=== PATIENT | female | born 1975 | race Caucasian/White ===

== ENCOUNTER → 2017-10-24 | Outpatient (CLI) | payer OTHER ==
--- NOTE | 2017-10-24 12:13 | FL ---
EXAMINATION TYPE: FL UGI air DATE OF EXAM: 10/24/2017 COMPARISON: NONE HISTORY: Pain above diaphragm for one month. History of GERD. TECHNIQUE: A double contrast UGI study is performed. 30 seconds of fluoroscopic time was utilized. 2 preprocedure images along with 20 images during procedure and 3 post procedure images were performed . FINDINGS: [employer] image of the abdomen shows no gross abnormality. Cholecystectomy clips are noted. The esophagus shows satisfactory motility and emptying into the stomach. No evidence of hiatal herni a or stricture noted. The stomach shows satisfactory distensibility, peristalsis, and mucosal folds. No evidence of any ma ss or ulcer disease. Several episodes of gastroesophageal reflux were seen during real-time performan ce of study. The duodenal bulb and sweep show tiny diverticulum along the medial aspect of second portion of duode num otherwise are unremarkable. IMPRESSION: Gastroesophageal reflux and tiny duodenal diverticulum.
== END | disposition home or self-care (01) ==
LOC: RADFLMAIN 08:37
PROVIDERS: ATTEND Family Medicine
DX: K21.9 Gastro-esophageal reflux disease without esophagitis (principal); K57.10 Diverticulosis of small intestine without perforation or abscess without bleeding; Z88.0 Allergy status to penicillin; Z88.6 Allergy status to analgesic agent; Z88.8 Allergy status to other drugs, medicaments and biological substances
CPT/HCPCS: 74246

== ENCOUNTER 2018-07-02 10:42 | Day surgery (SDC) | payer OTHER ==
[2018-06-27 15:14] VITALS: BMI 34.7
[~2018-07-02 10:42] MED LIST: LACTATED RINGERS 1,000 ML IV SCH; LIDOCAINE 1% 20 ML VIAL (10MG/ML) FOR IV START INTRADERMA PRN
[2018-07-02 11:13] VITALS: TEMP 97.2
[2018-07-02] MEDS ORDERED: MIDAZOLAM 2 MG/2 ML VIAL ONE (12:47)
[2018-07-02] MEDS ORDERED: PROPOFOL 10 MG/ML 20 ML VIAL IV ONE (12:47)
[2018-07-02] MEDS ORDERED: fentaNYL (PF) 50 MCG/ML 2 ML AMP ONE (12:47)
[2018-07-02] MEDS ORDERED: LIDOCAINE 1% INJ 10MG/ML (20 ML MDV) ONE (12:47)
--- NOTE | 2018-07-02 13:11 | P.PCN ---
Date of Procedure: 07/02/18 Procedure(s) Performed: Procedure: Esophagogastroduodenoscopy and biopsy. Preoperative diagnosis: Chronic reflux symptoms, not relieved by medical therapy. Postoperative diagnosis: 1. Very small sliding hiatal hernia with no obvious esophagitis or complicated reflux disease. 2. Mild antral gastritis with no ulcers or gastric outlet obstruction. 3. Multiple biopsies obtained from the duodenum, antrum and esophagus. Preparation and sedation: Was provided by anesthesia. Brief clinical history: The patient is a 42-year-old female who is scheduled for this evaluation because of reflux symptoms of few months duration not responding to medical therapy. No dysphagia, odynophagia or bleeding. No unintentional weight loss. This evaluation is to assess for esophagitis or complicated reflux disease or other pathology. Procedure: With the patient on her left lateral decubitus position and after informed consent and adequate sedation, I passed the Olympus-GIF 160 video upper endoscope through the cricopharyngeus down the esophagus. GE junction was around 36 cm from the incisors and there was a very small sliding hiatal hernia but no obvious esophagitis or complicated reflux disease. The endoscope was then passed into the stomach which was insufflated with air and inspected in detail including the retroflex view in the cardia. There was some mottling and erythema in the antrum but no ulcers or erosions. Pyloric channel, duodenal bulb, post bulbar area and descending duodenum appeared within normal limits. Because of her symptoms, I obtained biopsies from the duodenum, antrum and esophagus then the endoscope was withdrawn. The patient tolerated the procedure well. Plan: The patient was reassured. Will await biopsy results. She will follow- up with you as planned and further plans can be made based on her course and biopsy results. We would be happy to see in the future if her symptoms persist.
[2018-07-02 13:24] VITALS: BP 104/72; PULSE 75; RESP 18
== END 2018-07-02 13:48 | disposition home or self-care (01) ==
LOC: ORWHC2ENDO 10:42
DX: K29.50 Unspecified chronic gastritis without bleeding (principal); K21.0 Gastro-esophageal reflux disease with esophagitis; K44.9 Diaphragmatic hernia without obstruction or gangrene; F31.9 Bipolar disorder, unspecified; F17.210 Nicotine dependence, cigarettes, uncomplicated; Z79.899 Other long term (current) drug therapy; Z88.6 Allergy status to analgesic agent; Z88.1 Allergy status to other antibiotic agents; Z88.0 Allergy status to penicillin; Z90.49 Acquired absence of other specified parts of digestive tract; Z90.710 Acquired absence of both cervix and uterus
CPT/HCPCS: 88305; 43239; J2250; J2001; J3010; J2704

== ENCOUNTER → 2022-06-22 | Outpatient (CLI) | payer OTHER ==
--- NOTE | 2022-06-22 12:17 | MR ---
EXAMINATION TYPE: MR knee LT wo con DATE OF EXAM: 06/22/2022 COMPARISON: None HISTORY: Left knee pain, injury 3 weeks ago. TECHNIQUE: Multiplanar, multisequence imaging of the left knee is performed without IV contrast. FINDINGS: MEDIAL MENISCUS: Along the posterior horn the medial meniscus peripherally, coronal image #22, sagitt al image #26 there is some linear increased signal present although no definite extension to the anthony cular surface is noted. LATERAL MENISCUS: Anterior and posterior horns are intact without tear. CRUCIATE LIGAMENTS: The anterior and posterior cruciate ligaments are intact and unremarkable. COLLATERAL LIGAMENTS: The medial collateral ligament and lateral collateral ligament complex are inta ct and unremarkable. EXTENSOR MECHANISM: Visualized quadriceps and patellar tendons are intact. EFFUSION: No significant suprapatellar joint effusion, minimal joint fluid noted. POPLITEAL CYST: No popliteal/snydre cyst. TRICOMPARTMENT SPACES: Maintained CARTILAGE: Intact BONE MARROW SIGNAL: No focal abnormal marrow signal is appreciated. OTHER: There is some inflammatory signal present adjacent to the lateral margin of the posterior and inferior aspect of the patella, some increased signal present within Hoffa's fat pad this level. Pos terior medial soft tissues shows some mild increased T2 signal, possibly some local edema. IMPRESSION: Consider Hoffa fat pad impingement syndrome. Suspect some local edema possibly due to pat ient's trauma Abnormal marginal peripheral signal noted at the posterior horn of the medial meniscus, cleared tear not identified with certainty
== END | disposition home or self-care (01) ==
LOC: RADMRIMAIN 08:39
PROVIDERS: ATTEND Family Medicine
DX: S89.92XA Unspecified injury of left lower leg, initial encounter (principal)

== ENCOUNTER → 2023-10-18 | Outpatient (CLI) | payer OTHER ==
--- NOTE | 2023-10-18 18:14 | US ---
EXAMINATION TYPE: US pelvis complete transvag DATE OF EXAM: 10/18/2023 COMPARISON: NONE CLINICAL INDICATION: Female, 47 years old with history of R10.2 pelvic pain; Hx miscarriages. Patient has both ovaries. LMP 2011 at time of partial hysterectomy. Patient states she still has both ovarie s. . A2. TECHNIQUE: Transvaginal (TV) and Transabdominal (TA) . Transabdominal sonographic images of the pel vis were acquired. Transvaginal sonographic images were medically necessary to better assess the fol lowing anatomy: ovaries Date of LMP: 2011 at time of hysterectomy. EXAM MEASUREMENTS: Uterus: Surgically absent Endometrial Stripe: Surgically absent Right Ovary: Not seen Left Ovary: Not seen 1. Uterus: Surgically absent 2. Endometrium: Surgically absent 3. Right Ovary: Not seen 4. Left Ovary: Not seen 5. Bilateral Adnexa: Appears wnl 6. Posterior cul-de-sac: Appears wnl IMPRESSION: Neither ovary could be visualized due to bowel gas. Patient status post hysterectomy. No pelvic free fluid.
--- NOTE | 2023-10-19 20:20 | MM ---
Reason for Exam: Screening (asymptomatic). Patient History: Menarche at age 14. First Full-Term at age 25. Hysterectomy at age 35. Patient has history of breast feeding. 03/15/2012, Benign Excisional Biopsy on the right side. Risk Values: Sophia 5 year model risk: 1.1%. NCI Lifetime model risk: 10.2%. Prior Study Comparison: No prior studies available for comparison. Tissue Density: There are scattered fibroglandular densities. Findings: Analyzed By CAD. There is bilateral nodularity, one area upper outer quadrant right breast and 2 areas laterally in the left breast. Suspect intramammary lymph nodes given reniform appearance. As no priors available for comparison purposes, further evaluation is recommended. Benign oil cyst calcifications on the right. Otherwise, no discrete abnormality. Overall Assessment: Incomplete: need additional imaging evaluation, BI-RAD 0 Management: Diagnostic Mammogram of both breasts. Diagnostic Breast Ultrasound of both breasts. Additional views to include 3-D ML views on both sides. This should be followed with targeted bilateral breast ultrasounds for the areas of nodularity. [facility] will attempt to contact patient to return for supplemental views and ultrasound if indicated. Electronically signed and approved by: Lucas Jones M.D. Radiologist
== END | disposition home or self-care (01) ==
LOC: RADUSWWP 12:55
PROVIDERS: ATTEND Internal Medicine
DX: Z12.31 Encounter for screening mammogram for malignant neoplasm of breast (principal); R10.2 Pelvic and perineal pain; Z90.710 Acquired absence of both cervix and uterus
CPT/HCPCS: 76830; 76856; 77063; 77067

== ENCOUNTER → 2023-11-08 | Outpatient (CLI) | payer OTHER ==
--- NOTE | 2023-11-08 09:03 | MM ---
Reason for Exam: Additional evaluation requested from abnormal screening. Last screening mammogram was performed less than 1 month ago. Patient History: Menarche at age 14. First Full-Term at age 25. Hysterectomy at age 35. Patient has history of breast feeding. 03/15/2012, Benign Excisional Biopsy on the right side. Paternal aunt (yamil) had breast cancer. Risk Values: Sophia 5 year model risk: 1.1%. NCI Lifetime model risk: 10.2%. Prior Study Comparison: 10/18/2023 Bilateral MG 3D screening mammo w/cad, [facility]. Tissue Density: There are scattered fibroglandular densities. Findings: Analyzed By CAD. Persistent nodular density upper outer right breast approximately 11 cm from the nipple. Ultrasound is recommended. 2 nodular densities left breast 1 upper outer quadrant 13 cm from the nipple and a second lower outer quadrants 6 cm from the nipple. Ultrasound is advised bilaterally. Overall Assessment: Incomplete: need additional imaging evaluation, BI-RAD 0 Management: Diagnostic Breast Ultrasound of both breasts. . Results were given to the patient verbally at the time of exam. Patient should continue monthly self-breast exams. A clinical breast exam by your physician is recommended on an annual basis. This exam should not preclude additional follow-up of suspicious palpable abnormalities. Note on Sophia scores and lifetime risk: 1. A Sophia score greater than 3% is considered moderate risk. If this is the case, consider specialist referral to assess eligibility for a risk reducing agent. 2. If overall lifetime risk for the development of breast cancer is 20% or higher, the patient may qualify for future screening with alternating mammogram and breast MRI. Electronically signed and approved by: Ervin Lazaro M.D. Radiologis
--- NOTE | 2023-11-08 09:14 | USB ---
Reason for Exam: Additional evaluation requested from abnormal screening. Indicated Problems: Other indicated problem of the right side : UOQ. Other indicated problem of the left side : Lateral. Patient History: Menarche at age 14. First Full-Term at age 25. Hysterectomy at age 35. Patient has history of breast feeding. 03/15/2012, Benign Excisional Biopsy on the right side. Paternal aunt (great) had breast cancer. Risk Values: Sophia 5 year model risk: 1.1%. NCI Lifetime model risk: 10.2%. Technique: Method: Targeted. Doppler: Color. LPO and RPO. Prior Study Comparison: 10/18/2023 Bilateral MG 3D screening mammo w/cad, [facility]. Findings: The upper outer quadrant of both breasts, the axilla of both breasts and the retroareolar of both breasts were scanned. Cystic lesion at the right 10:00 position measures 1 cm x 3 mm. No solid right-sided masses are seen. Left breast demonstrates 3:00 cystic lesion measuring 8 x 4 mm. Additional cystic lesion left 1:00 position measures 4 x 1 mm. Overall Assessment: Probably benign, BI-RAD 3 Management: Diagnostic Mammogram of both breasts in 6 months. A clinical breast exam by your physician is recommended on an annual basis and results should be correlated with mammographic findings. This exam should not preclude additional follow-up of suspicious palpable abnormalities. Results were given to the patient verbally at the time of exam. Electronically signed and approved by: Ervin Lazaro M.D. Radiologis
== END | disposition home or self-care (01) ==
LOC: RADMAMWWP 08:14
PROVIDERS: ATTEND Internal Medicine
DX: N60.01 Solitary cyst of right breast (principal); N60.02 Solitary cyst of left breast; R92.323 Mammographic fibroglandular density, bilateral breasts; Z80.3 Family history of malignant neoplasm of breast
CPT/HCPCS: 77066; 76642; G0279; 77062